=== PATIENT | male | born 1975 | race Caucasian/White ===

== ENCOUNTER 2018-06-30 15:15 | Emergency (ER) | payer MEDICARE, OTHER ==
[~2018-06-30] VITALS: Ht 175.3 cm; Wt 81.6 kg
[2018-06-30] MEDS ORDERED: morphine INJ 10 MG/ML 1ML (SYR OR VIAL) IVP STA (15:34)
[2018-06-30] MEDS ORDERED: ceFAZolin 2 GM IV Premixed 50 ML IV STA (15:34)
[2018-06-30] MEDS ORDERED: ceFAZolin INJECTION 2,000 MG ONE (15:35)
--- NOTE | 2018-06-30 15:47 | ED Upper Extremity ---
General Chief Complaint: Laceration Stated Complaint: LT THUMB LAC Nursing Triage Note: PT REPORTS HIS LEFT THUMB GOT CAUGHT IN A CHOP SAW WHILE CHOPPING UP SOME RUBBER. LEFT THUMB NAIL LACERATED. Nursing Sepsis Screen: No Definite Risk History of Present Illness Date Seen by Provider: Jun 30, 2018 Time Seen by Provider: 15:31 Onset: just prior to arrival Severity: severe Pain/Injury Location: left thumb Method of Injury: other (accidentally inserted finger into a saw blade) Modifying Factors: Improves With Movement This is a 42-year-old male patient here shortly after an accident where he injured his left thumb. He accidentally cut the thumb in a saw blade. He denies any other injuries. Last tetanus vaccination was within 5 years he states. Allergies and Home Medications Allergies Coded Allergies: No Known Drug Allergies (Unverified , 06/30/18) Patient Home Medication List Home Medication List Reviewed: Yes Review of Systems Constitutional: see HPI EENTM: see HPI Respiratory: see HPI Cardiovascular: see HPI Gastrointestinal: see HPI Genitourinary: see HPI Musculoskeletal: see HPI Skin: see HPI Psychiatric/Neurological: No Symptoms Reported, See HPI Past Hxvwigl-Svxgxn-Cktdtg Hx Patient Social History Alcohol Use: Denies Use Recreational Drug Use: No Smoking Status: Current Everyday Smoker 2nd Hand Smoke Exposure: Yes Recent Foreign Travel: No Contact w/Someone Who Travel: No Recent Infectious Disease Expo: No Physical Abuse: No Sexual Abuse: No Mistreated: No Fear: No Immunizations Up To Date Tetanus Booster (TDap): Less than 5yrs PED Vaccines UTD: No Physical Exam Vital Signs Vital Signs - First Documented 06/30/18 15:25 Temp 99.4 Pulse 89 Resp 16 B/P (MAP) 147/92 (110) Pulse Ox 96 O2 Delivery Room Air Capillary Refill : Less Than 3 Seconds Height, Weight, BMI Height: 5'9.00" Weight: 180lbs. oz. 81.182013wp; BMI Method:Estimated General Appearance: no apparent distress HEENT: PERRL/EOMI, normal ENT inspection, TMs normal, pharynx normal Neck: full range of motion, supple Cardiovascular: normal peripheral pulses, regular rate, rhythm, no edema Respiratory: lungs clear, normal breath sounds, no respiratory distress, no accessory muscle use Gastrointestinal: normal bowel sounds, non tender, soft, abnormal bowel sounds Hand: normal inspection (the left dorsal first digit has a large laceration crossing approximately at the level of the nail fold, there is no active bleeding, flexion and extension at each joint in affected digit is grossly intact, distal capillary refill on the skin is intact, there is a large subungual hematoma) Neurologic/Tendon: other (motor and sensory function is grossly intact in the affected digit with range of motion limited secondary to pain) Skin: normal color, warm/dry Progress/Results/Core Measures Results/Orders My Orders Orders - JOANA SOSA DO Hand 2 View Left (06/30/18 15:34) Cefazolin 2 Gm Iv Premixed (Ancef 2 Gm P (06/30/18 15:34) Morphine Injection (Morphine Injection (06/30/18 15:34) Cefazolin Injection (Ancef Injection) (06/30/18 15:35) Vital Signs/I&O 06/30/18 06/30/18 06/30/18 15:25 15:49 16:42 Temp 99.4 98.3 Pulse 89 82 Resp 16 18 B/P (MAP) 147/92 (110) 135/68 (90) Pulse Ox 96 98 O2 Delivery Room Air Room Air Blood Pressure Mean: 110 Progress Progress Note #1: Progress Note I suspect the patient likely has an open fracture of the left first digit distal phalanx. Tetanus is up-to-date. RN has initiated irrigation of the wound. Will treat with IV Ancef. We will give a dose of morphine for analgesia. We await x-ray, we will consult hand surgery if available. Progress Note #2: Progress Note Dr Hinojosa (hand surgery) recommends pt come to [facility] for evaluation, approves of transport by POV. Pt here with two family members who can help him with transportation. Departure Impression Primary Impression: Open fracture of phalanx of finger of left hand Disposition: 01 HOME, SELF-CARE (patient to go by private vehicle to [facility] for hand surgery evaluation.) Condition: Stable Transfer Method of Transfer: Private Vehicle JOANA SOSA DO Jun 30, 2018 15:47
--- NOTE | 2018-06-30 16:15 | Diagnostic Imaging Report ---
INDICATION: Pain. FINDINGS: There is a comminuted tuft fracture of the left thumb. There appears to be soft tissue injury as well. No other fracture dislocation. IMPRESSION: Comminuted tuft fracture of the left thumb with soft tissue injury. Dictated by: Dictated on workstation # [id number]
[2018-06-30 16:42] VITALS: BP 135/68
== END 2018-06-30 16:58 | disposition short-term general hospital (02) ==
LOC: ER FS 15:18
DX: S62.502B Fracture of unspecified phalanx of left thumb, initial encounter for open fracture (principal); F17.200 Nicotine dependence, unspecified, uncomplicated; W26.8XXA Contact with other sharp object(s), not elsewhere classified, initial encounter
CPT/HCPCS: 11010; 73120

== ENCOUNTER → 2018-10-03 | Outpatient (CLI) | payer OTHER | LOC: RAD 14:37 | PROVIDERS: ATTEND Nurse Practitioner | DX: M54.6 Pain in thoracic spine (principal); Z53.8 Procedure and treatment not carried out for other reasons ==